=== PATIENT | female | born 1950 | race African-American/Black ===

== ENCOUNTER 2023-04-22 12:27 | Emergency (ER) | payer OTHER, MEDICAID ==
[~2023-04-22] VITALS: Ht 170.2 cm; Wt 91.0 kg
[2023-04-22 12:31] VITALS: BP 0/0; PULSE 0; RESP 0; O2SAT 0
[2023-04-22] MEDS ORDERED: TENECTEPLASE 50MG/VIAL (FOR MI OR PE) IV NR (13:00)
== END 2023-04-22 13:26 ==
LOC: ER 12:27
DX: I46.9 Cardiac arrest, cause unspecified (principal); J45.909 Unspecified asthma, uncomplicated; I10 Essential (primary) hypertension; I48.91 Unspecified atrial fibrillation
CPT/HCPCS: 99291; 92950; 31500; 82962; J2997